=== PATIENT | male | born 1980 | race Caucasian/White ===

== ENCOUNTER 2020-08-27 09:40 | Emergency (ER) | payer OTHER ==
[~2020-08-27] VITALS: Ht 170.2 cm; Wt 84.1 kg
[2020-08-27] MEDS ORDERED: METH27TA PO (09:51)
[2020-08-27 11:11] VITALS: BP 146/91
== END 2020-08-27 11:39 | disposition home or self-care (01) ==
LOC: EMS 09:40
DX: M25.511 Pain in right shoulder (principal); Z79.899 Other long term (current) drug therapy
CPT/HCPCS: 29105